=== PATIENT | male | born 1990 | race Caucasian/White ===

== ENCOUNTER 2017-11-02 19:02 | Emergency (ER) | payer BC ==
[~2017-11-02] VITALS: Ht 180.3 cm; Wt 86.3 kg
[2017-11-02 21:59] LABS: HEMATOCRIT 39.5 % (38.0-50.0); HEMOGLOBIN 14.2 G/DL (12.5-16.6); MCH 30.3 PG (29.0-34.0); MCHC 35.9 G/DL (30.0-36.0); MCV 84.4 FL (86-99); PLATELET COUNT 217 K/uL (156-360); RBC DIS.WIDTH-CV 12.3 % (11.8-14.6); RBC DIS.WIDTH-SD 37.1 % (39-53); RED BLOOD COUNT 4.68 M/uL (4.00-5.50); WHITE BLOOD COUNT 16.1 K/uL (4.1-10.2)
[2017-11-02 22:08] LABS: INTER. NORMALIZED RATIO 1.1
[2017-11-02 22:34] LABS: ALBUMIN 4.5 g/dL (3.2-4.8); CHLORIDE 108 mEq/L (99-109); POTASSIUM 3.9 mEq/L (3.7-5.4); SODIUM 140 mEq/L (136-147)
[2017-11-02 22:37] LABS: GLUCOSE 110 mg/dL (70-99); TOTAL PROTEIN 6.6 g/dL (6.4-8.3)
[2017-11-02 22:39] LABS: TOTAL BILIRUBIN 0.5 mg/dL (0.0-1.0)
[2017-11-02 22:40] LABS: ALKALINE PHOSPHATASE 44 IU/L (3-129); CREATININE 1.1 mg/dL (0.6-1.3); GFR ESTIMATE (CALCULATED) > 59 mL/min/ (58.99-99999)
[2017-11-02 22:41] LABS: UREA NITROGEN (BUN) 20 mg/dL (9-23)
[2017-11-02 22:42] LABS: AST (GOT) 60 IU/L (2-34)
[2017-11-02 22:43] LABS: ALT (GPT) 55 IU/L (3-49)
[2017-11-03] MEDS ORDERED: ROBAXIN750 MG PO (01:51)
[2017-11-03] MEDS ORDERED: PERCOCET 5/31 TABLET PO (01:51)
[2017-11-03 02:09] VITALS: BP 109/62
== END 2017-11-03 02:10 | disposition home or self-care (01) ==
LOC: EME 19:02
PROVIDERS: Physician Assistant
PROC: 3E0234Z Introduction of Serum, Toxoid and Vaccine into Muscle, Percutaneous Approach (ICD-10-PCS; principal; 2017-11-03)
DX: S22.41XA Multiple fractures of ribs, right side, initial encounter for closed fracture (principal); S09.90XA Unspecified injury of head, initial encounter; S40.021A Contusion of right upper arm, initial encounter; S70.11XA Contusion of right thigh, initial encounter; S00.83XA Contusion of other part of head, initial encounter; S05.11XA Contusion of eyeball and orbital tissues, right eye, initial encounter; Z23 Encounter for immunization; V00.321A Fall from snow-skis, initial encounter; W22.8XXA Striking against or struck by other objects, initial encounter; Y93.23 Activity, snow (alpine) (downhill) skiing, snowboarding, sledding, tobogganing and snow tubing
CPT/HCPCS: 70450; 70486; 71101; 71260; 72125; 73060; 73552; 74177; 80053; 85027; 85610; J2270; J2405; J7030